=== PATIENT | male | born 2000 | race African-American/Black ===

== ENCOUNTER 2023-02-07 03:15 | Emergency (ER) | payer SELFPAY ==
[2023-02-07] MEDS ORDERED: Ipratropium/Albuterol 3 ML NEB ONE ×2 (04:10→05:12)
[2023-02-07] MEDS ORDERED: Albuterol 2.5 MG/0.5 ML NEB ONE (05:12)
[2023-02-07] MEDS ORDERED: predniSONE 20 MG TAB ONE (05:13)
[2023-02-07 05:19] LABS: #Eosinphils 0.4 10x3/uL (0.0-0.5); #Monocytes 0.8 10x3/uL (0.0-1.1); #Neutrophils 6.1 10x3/uL (1.5-8.4); %Basophils 0.2 % (0.0-2.0); %Eosinophils 4.3 % (0.0-6.0); %Lymphocytes 21.1 % (18.0-47.0); %Monocytes 8.9 % (0.0-10.0); %Neutrophils 65.3 % (40.0-75.0); Hematocrit 44.6 % (38.8-50.0); Hemoglobin 13.1 g/dL (13.5-17.5); Mean Corpuscular HGB CONC 29.4 g/dL (32.0-36.0); Mean Corpuscular Volume 71.5 fl (81.2-95.1); Mean Platelet Volume 10.1 fl (7.4-10.4); Platelet Count 204 10x3/uL (150-450); RBC Distribution Width 13.6 % (11.5-14.5); Red Blood Cell (RBC) Count 6.24 10x6/uL (4.32-5.72); White Blood Cell (WBC) Count 9.3 10x3/uL (3.5-10.5)
[2023-02-07 05:34] LABS: ALT (SGPT) 23 U/L (8-55); AST (SGOT) 23 U/L (5-34); Albumin 4.4 g/dL (3.5-5.0); Alkaline Phosphatase 81 U/L (50-130); Anion Gap 16 mmol/L (10-20); BUN (Urea Nitrogen) 13 mg/dL (8.9-20.6); Bilirubin, Total 0.6 mg/dL (0.2-1.2); Calc. Creatinine Clearance 0 mL/min (70-130); Calcium 9.2 mg/dL (7.8-10.44); Carbon Dioxide 24 mmol/L (22-29); Chloride 104 mmol/L (98-107); Estimated GFR 81; Globulin 3.2 g/dL (2.4-3.5); Glucose 152 mg/dL (70-105); Potassium 3.5 mmol/L (3.5-5.1); Protein, Total 7.6 g/dL (6.0-8.3); Sodium 140 mmol/L (136-145)
[2023-02-07 06:14] LABS: Microcytosis MODERATE=15-30 cells (100X) (0-5/hpf)
[2023-02-07 06:15] LABS: Platelet Adequacy Comment Appears Adequate
== END 2023-02-07 10:58 | disposition home or self-care (01) ==
LOC: CSHERS 03:15
DX: J45.901 Unspecified asthma with (acute) exacerbation (principal)
CPT/HCPCS: 71045; 71275; 80053; 85025; 85379; 94640; 94760; J7512; J7611; J7620